=== PATIENT | female | born 1980 | race African-American/Black ===

== ENCOUNTER 2025-07-13 20:57 | Emergency (ER) | payer OTHER ==
[~2025-07-13] VITALS: Ht 172.7 cm; Wt 73.5 kg
[2025-07-13] MEDS: ACETAMINOPHEN 325 MG TAB PO STA (21:53)
[2025-07-13 22:08] LABS: LEUKOCYTE ESTERASE ,URINE NEGATIVE (NEGATIVE)
[2025-07-13 22:09] LABS: EPITHELIAL CELLS,URINE FEW /LPF; PREGNANCY TEST, URINE NEGATIVE (NEGATIVE); PROTEIN,URINE DIPSTICK NEGATIVE (NEGATIVE); URINE UROBILINOGEN 0.2 mg/dL (0.2 - 1); WBC,URINE (MAN) 0-5 /HPF (0-5)
[2025-07-13 22:14] LABS: BASOPHILS % 0.2 % (0.0-1.0); EOSINOPHILS % 0.5 % (0.0-6.0); LYMPHOCYTES % 15.3 % (18.0-39.1); MONOCYTES % 7.8 % (4.4-11.3); NEUTROPHILS % 75.8 % (38.7-80.0); RED CELL DISTRIBUTION WIDTH 12.4 % (11.7-14.4)
[2025-07-13 22:25] LABS: CORONAVIRUS COVID-19 AG NEGATIVE (NEGATIVE)
[2025-07-13 22:32] LABS: EST GLOMERULAR FILTRATION RATE 68.0 ML/MIN (>=60)
[2025-07-13] MEDS ORDERED: IOPAMIDOL 370 MG/ML 100 ML INFUS..BTL INJ ONE (23:02)
[2025-07-13] MEDS: SODIUM CHLORIDE 0.9% 1000ML 1,000 ML IV STA ×2 (23:55)
[2025-07-13] MEDS: ONDANSETRON HCL INJ 2MG/ML 2ML 2 MG/ML VIAL IV STA (23:55)
[2025-07-14] MEDS ORDERED: HYDROCODON-ACE1 EA11 PO (01:00)
[2025-07-14] MEDS ORDERED: AMOX TR-K CLV1 EAC2 PO (01:00)
[2025-07-14 01:13] VITALS: PULSE 81; RESP 16; TEMP 98.7; O2SAT 99
== END 2025-07-14 01:14 | disposition home or self-care (01) ==
LOC: ER 21:26
DX: R10.31 Right lower quadrant pain (principal); K52.9 Noninfective gastroenteritis and colitis, unspecified; Z11.52 Encounter for screening for COVID-19
CPT/HCPCS: 36415; 74177; 80053; 81001; 81025; 83605; 83690; 85025; 87040; 87086; 87426; 99284; J2405; J2543; J7030; Q9967